=== PATIENT | male | born 1970 | race Caucasian/White ===

== ENCOUNTER 2017-04-22 14:06 | Emergency (ER) | payer OTHER ==
[2017-04-22 14:37] VITALS: BP 128/86
[2017-04-22] MEDS ORDERED: Tetan/Diph/Pertus SYR(Tdap)* 0.5 ML SYR(BOOSTRIX) use SYR IM ONE (15:18)
--- NOTE | 2017-04-22 15:19 | UC ---
Skin Complaint HPI - HPI Summary HPI Summary: Pt presents with 3 days pruritic red rash on right medial calf. Pt states started [place]. Pt states was sweaty and hot. states had little "bumps" he itched. States made small scabs. No other complaints - no fevers, chills. No cp, sob, abd pain non n/v. States wounds were above top of work boots, but was wearing jeans. Not immunocompromised. Unknown last tetanus. Pt's medications reviewed at this visit - History of Current Complaint Chief Complaint: UCRash Time Seen by Provider: 04/22/17 15:00 Stated Complaint: RIGHT CALF SKIN COMPLAINT Hx Obtained From: Patient Onset/Duration: Sudden Onset, Lasting Days Skin Exposure Onset/Duration: Days Ago Timing: Constant Onset Severity: Mild Current Severity: Mild Pain Intensity: 0 Location: Discrete Aggravating: Nothing Alleviating: Nothing Associated Signs & Symptoms: Positive: Rash - Allergy/Home Medications Allergies/Adverse Reactions: Allergies Allergy/AdvReac Type Severity Reaction Status Date / Time bees Allergy Swelling Uncoded 04/22/17 14:39 Of Face,Lips,& Throat seasonal Allergy Eyes Uncoded 04/22/17 14:39 Itchy/Swollen/Red/Watery Home Medications: Home Medications Bag [place] 1 applic TOPICAL ONCE PRN 04/22/17 [History] Hydrocortisone 1% CREAM* [Hytone Cream 1%*] 1 applic TOPICAL ONCE PRN 04/22/17 [ History Confirmed 04/22/17] Restless Leg Med 1 tab PO BEDTIME PRN 04/22/17 [History] Review of Systems Constitutional: Negative Skin: Rash Eyes: Negative ENT: Negative Respiratory: Negative Cardiovascular: Negative Gastrointestinal: Negative Genitourinary: Negative Motor: Negative Neurovascular: Negative Musculoskeletal: Negative Neurological: Negative Psychological: Negative All Other Systems Reviewed And Are Negative: Yes PMH/Surg Hx/FS Hx/Imm Hx Previously Healthy: Yes - Surgical History Surgical History: Yes Surgery Procedure, Year, and Place: partial thyroidectomy - Family History Known Family History: Positive: Unknown - Social History Occupation: Employed Full-time Lives: With Family Alcohol Use: None Substance Use Type: None Smoking Status (MU): Heavy Every Day Tobacco Smoker Physical Exam Triage Information Reviewed: Yes Appearance: Well-Appearing, No Pain Distress, Well-Nourished Vital Signs: Initial Vital Signs Temp 99.2 F 04/22/17 14:27 Pulse 84 04/22/17 14:27 Resp 18 04/22/17 14:27 BP 128/86 04/22/17 14:27 Vital Signs Reviewed: Yes Eye Exam: Normal Eyes: Positive: Conjunctiva Clear ENT Exam: Normal ENT: Positive: Normal ENT inspection, Hearing grossly normal, Pharynx normal, TMs normal Dental Exam: Normal Neck exam: Normal Neck: Positive: Supple, Nontender Respiratory Exam: Normal Respiratory: Positive: Chest non-tender, Lungs clear, Normal breath sounds, No respiratory distress, No accessory muscle use, Respiratory distress Cardiovascular Exam: Normal Cardiovascular: Positive: RRR, No Murmur, Pulses Normal Abdominal Exam: Normal Abdomen Description: Positive: Nontender, No Organomegaly, Soft Bowel Sounds: Positive: Present Musculoskeletal Exam: Normal Musculoskeletal: Positive: Strength Intact Neurological Exam: Normal Neurological: Positive: Alert Psychological Exam: Normal Skin: Positive: rashes - Right LE medial aspect of calf - Pt with discrete raised, red lesions on erythematous base with some confluence of base. small scab on lesion no warmth No streaking no fluctuance Course/Dx - Course Course Of Treatment: Pt with red raised rash, pruruitic on right medial calf. nontender. occurred after outdoor work. suspect contact dermatitis. Will give Medrol dose pack. avoid heat. OTC benadryl. elevate. tdap. s/s infection and return precautions discussed - Diagnoses Provider Diagnoses: contact dermatitis Discharge - Discharge Plan Condition: Stable Disposition: HOME Prescriptions: Methylprednisolone [Medrol Dosepak 4 MG*] 4 mg PO .SEE SUDHIR INSTRUCTION #1 tab Patient Education Materials: Diphtheria/Tetanus Vaccine (By injection), Contact Dermatitis (ED) Referrals: MOI Welsh [Primary Care Provider] - Additional Instructions: - Stay well hydrated. Drink plenty of non-alcoholc, non-caffinated beverages - Take prednisone exactly as prescribed until gone - Monitor your wound for signs of infection - red streaking, increased redness, odor, fever, chills, pain - Your arm will likely be sore where you received your tetanus vaccine today - this is normal - Okay to alternate ibuprofen (Advil, Motrin) and tylenol every 3 hours for pain -Avoid getting over heated- hot showers, hot tub, execises for a few days - this will make itching worse -Okay to apply over the counter bendaryl cream or hydrocortisone as needed for itching - Call your doctor or return with questions or concerns
== END 2017-04-22 15:32 | disposition home or self-care (01) ==
LOC: UCCORT 14:06
DX: L25.5 Unspecified contact dermatitis due to plants, except food (principal); Z23 Encounter for immunization; F17.210 Nicotine dependence, cigarettes, uncomplicated
CPT/HCPCS: 90471; 90715; 99212; G0463

== ENCOUNTER 2017-05-01 16:51 | Emergency (ER) | payer OTHER ==
--- NOTE | 2017-05-01 17:40 | UC ---
Skin Complaint HPI - HPI Summary HPI Summary: SEEN ON 04/22/17 DIAGNOSED WITH CONTACT DERMATITIS, GIVEN SOLUMEDROL DOSEPACK; CONCERN IMPROVED BUT RASH WAS VERY ITCHY. HOWEVER OVER LAST FOUR DAYS AREA HAS BECOME RED WARM SWOLLEN AND ITCHY RASH CONTINUES. NO CHEST PAIN. NO SHORTNESS OF BREATH. - History of Current Complaint Chief Complaint: UCLowerExtremity Time Seen by Provider: 05/01/17 16:57 Stated Complaint: RASH/SWELLING CALF RIGHT LEG Hx Obtained From: Patient Onset/Duration: Gradual Onset, Lasting Weeks, Still Present Skin Exposure Onset/Duration: Weeks Ago Onset Severity: Mild Current Severity: Moderate Location: Discrete - RIGHT MEDIAL CALF Character: Pruritus, Redness, Raised, Painful - TENDER Aggravating: Nothing Alleviating: Nothing Associated Signs & Symptoms: Positive: Rash. Negative: Fever, Chills, Hoarseness, Throat Tightening, Syncope, Drainage, Bruising, Tenderness - Allergy/Home Medications Allergies/Adverse Reactions: Allergies Allergy/AdvReac Type Severity Reaction Status Date / Time bees Allergy Swelling Uncoded 05/01/17 17:09 Of Face,Lips,& Throat seasonal Allergy Eyes Uncoded 05/01/17 17:09 Itchy/Swollen/Red/Watery Home Medications: Home Medications Diphenhydramine HCl [Benadryl Allergy 25 MG CAP] 25 mg PO Q6H PRN 05/01/17 [ History Confirmed 05/01/17] Poison Jessica Cream 1 udc TOPICAL DAILY PRN 05/01/17 [History Confirmed 05/01/17] Review of Systems Constitutional: Negative Skin: Rash Eyes: Negative ENT: Negative Respiratory: Negative Cardiovascular: Negative Gastrointestinal: Negative Genitourinary: Negative Motor: Negative Neurovascular: Negative Musculoskeletal: Negative, Calf Tenderness - MEDIAL RIGHT CALF AT AREA OF ERYTHEMA Neurological: Negative Psychological: Negative All Other Systems Reviewed And Are Negative: Yes PMH/Surg Hx/FS Hx/Imm Hx Previously Healthy: Yes - Surgical History Surgical History: Yes Surgery Procedure, Year, and Place: partial thyroidectomy - Family History Known Family History: Positive: Unknown - Social History Occupation: Employed Full-time Lives: With Family Alcohol Use: None Substance Use Type: None Smoking Status (MU): Heavy Every Day Tobacco Smoker Type: Cigarettes Amount Used/How Often: 1 PPD Length of Time of Smoking/Using Tobacco: 18 Have You Smoked in the Last Year: Yes Cessation Counseling: Patient Advised to Stop Physical Exam Triage Information Reviewed: Yes Appearance: Well-Appearing, No Pain Distress, Well-Nourished Vital Signs: Initial Vital Signs Temp 98.6 F 05/01/17 16:55 Pulse 95 05/01/17 16:55 Resp 20 05/01/17 16:55 BP 142/104 05/01/17 16:55 Pulse Ox 97 05/01/17 16:55 Vital Signs Reviewed: Yes Eye Exam: Normal ENT Exam: Normal Dental Exam: Normal Neck exam: Normal Neck: Positive: Supple, Nontender, No Lymphadenopathy Respiratory Exam: Normal Respiratory: Positive: Chest non-tender, Lungs clear Cardiovascular Exam: Normal Cardiovascular: Positive: RRR, No Murmur, Pulses Normal Abdominal Exam: Normal Musculoskeletal Exam: Normal Musculoskeletal: Positive: Strength Intact, ROM Intact, No Edema Neurological Exam: Normal Psychological Exam: Normal Skin: Positive: rashes - ERYTHEMA RIGHT MEDIAL CALF Course/Dx - Differential Diagnoses - Skin Complaint Differential Diagnoses: Cellulitis, Eczema, Local Allergic Reaction, MRSA, Poison Jessica, Poison [place], Tick Born Illness, Tinea - Diagnoses Provider Diagnoses: CONTACT DERMATITIS CELLULITIS RIGHT MEDIAL CALF Discharge - Discharge Plan Condition: Stable Disposition: HOME Prescriptions: Cephalexin CAP* [Keflex CAP*] 500 mg PO TID #30 cap Triamcinolone 0.5% OINT * 1 applic TOPICAL TID #1 tube Patient Education Materials: Contact Dermatitis (ED), Cellulitis (ED) Referrals: MOI Welsh [Primary Care Provider] - Images Front/Back of Body, Lg ([place]): 1 - EXCORIATED ERYTHEMATOUS WARM AREA 4CM X 3CM; NEGATIVE HHOMANS; TENDER IN AREA OF ERYTHEMA
[2017-05-01 17:46] VITALS: BP 142/102
== END 2017-05-01 17:40 | disposition home or self-care (01) ==
LOC: UCCORT 16:51
DX: L25.9 Unspecified contact dermatitis, unspecified cause (principal); L03.115 Cellulitis of right lower limb; E89.0 Postprocedural hypothyroidism; Z91.030 Bee allergy status; F17.210 Nicotine dependence, cigarettes, uncomplicated
CPT/HCPCS: 99212; G0463

== ENCOUNTER 2017-06-04 16:51 | Emergency (ER) | payer OTHER ==
[2017-06-04 19:11] VITALS: BP 147/104
--- NOTE | 2017-06-04 19:20 | ED ---
Skin Complaint - HPI Summary HPI Summary: itchy red rash on back of right calf---did get stung by a bee yesterday--but that does not seem related--unsure of exposure no place elese on his body - History of Current Complaint Chief Complaint: UCRash Time Seen by Provider: 06/04/17 19:13 Stated Complaint: RIGHT LEG ISSUE Hx Obtained From: Patient Onset/Duration: Started Hours Ago, Atraumatic, Still Present Timing: Constant Onset Severity: Mild Current Severity: Mild Skin Location: Discrete - back of right calf Character: Pruritus, Hives Aggravating Symptom(s): Nothing Alleviating Symptom(s): Nothing Associated Signs & Symptoms: Negative Related History: Possible Reaction to: Insect - Allergy/Home Medications Allergies/Adverse Reactions: Allergies Allergy/AdvReac Type Severity Reaction Status Date / Time bees Allergy Swelling Uncoded 06/04/17 17:13 Of Face,Lips,& Throat seasonal Allergy Eyes Uncoded 06/04/17 17:13 Itchy/Swollen/Red/Watery PMH/Surg Hx/FS Hx/Imm Hx Previously Healthy: No Endocrine/Hematology History: Reports: Hx Thyroid Disease - benign Neurological History: Reports: Hx Seizures - Cancer History Hx Hematologic Symptoms: No Hx Chemotherapy: No Hx Radiation Therapy: No Hx Palliative Cancer Treatment: No - Surgical History Surgery Procedure, Year, and Place: partial thyroidectomy Hx Anesthesia Reactions: No - Immunization History Hx Pertussis Vaccination: No Immunizations Up to Date: No Infectious Disease History: No Infectious Disease History: Denies: Traveled Outside the [place] in Last 30 Days - Family History Known Family History: Positive: Unknown - Social History Occupation: Unemployed Lives: With Family Alcohol Use: None Substance Use Type: Reports: None Smoking Status (MU): Heavy Every Day Tobacco Smoker Type: Cigarettes Amount Used/How Often: 1 PPD Length of Time of Smoking/Using Tobacco: 18 Have You Smoked in the Last Year: Yes Review of Systems Constitutional: Negative Eyes: Negative ENT: Negative Cardiovascular: Negative Respiratory: Negative Gastrointestinal: Negative Genitourinary: Negative Musculoskeletal: Negative Positive: Rash Neurological: Negative Psychological: Normal All Other Systems Reviewed And Are Negative: Yes Physical Exam Triage Information Reviewed: Yes Vital Signs On Initial Exam: Initial Vitals Temp Pulse Resp BP Pulse Ox 98.9 F 81 16 133/98 99 06/04/17 17:14 06/04/17 17:14 06/04/17 17:14 06/04/17 17:14 06/04/17 17:14 Vital Signs Reviewed: Yes Appearance: Positive: Well-Appearing, No Pain Distress Skin: Positive: Warm, Skin Color Reflects Adequate Perfusion, Other - urticaria back of right calf Eyes: Positive: Normal, EOMI, SANAZ ENT: Positive: Normal ENT inspection, Hearing grossly normal. Negative: Nasal congestion, Nasal drainage, Muffled/hoarse voice, Dental tenderness Neck: Positive: Supple, Nontender Respiratory/Lung Sounds: Positive: Breath Sounds Present. Negative: Unable to speak in full sentences Cardiovascular: Positive: Normal, RRR Musculoskeletal: Positive: Normal, Strength/ROM Intact Neurological: Positive: Normal, Sensory/Motor Intact, Alert, Oriented to Person Place, Time Psychiatric: Positive: Normal AVPU Assessment: Alert - [place] Coma Scale Best Eye Response: 4 - Spontaneous Best Motor Response: 6 - Obeys Commands Best Verbal Response: 5 - Oriented Diagnostics - Vital Signs Vital Signs Temp Pulse Resp BP Pulse Ox 06/04/17 19:09 99.2 F 70 16 147/104 99 06/04/17 17:14 98.9 F 81 16 133/98 99 - Laboratory Lab Statement: Any lab studies that have been ordered have been reviewed, and results considered in the medical decision making process. Course/Dx - Course Course Of Treatment: pepcid, benadryl, steroid cream (refused po med) follow with pcp - Differential Diagnoses - Skin Complaint Differential Diagnoses: Contact Dermatitis, Local Allergic Reaction, Poison Jessica , Poison [place] - Diagnoses Provider Diagnoses: Acute contact dermatitis Discharge - Discharge Plan Condition: Stable Disposition: HOME Prescriptions: Famotidine TAB 40 MG(NF) [Pepcid TAB 40 MG(NF)] 40 mg PO DAILY #7 tab Triamcinolone 0.5% CREAM(NF) [Triamcinolone 0.5% CREAM*] 1 applic TOPICAL TID # 1 tube Patient Education Materials: Famotidine (By mouth), Contact Dermatitis (ED), Diphenhydramine (By mouth) Referrals: Etienne Dia [Primary Care Provider] - 5 Days
== END 2017-06-04 19:40 | disposition home or self-care (01) ==
LOC: UCCORT 16:51
DX: L25.9 Unspecified contact dermatitis, unspecified cause (principal); E07.9 Disorder of thyroid, unspecified; R56.9 Unspecified convulsions; E89.0 Postprocedural hypothyroidism; F17.210 Nicotine dependence, cigarettes, uncomplicated
CPT/HCPCS: 99212; G0463

== ENCOUNTER 2017-06-22 15:45 | Emergency (ER) | payer OTHER ==
[2017-06-22 16:46] VITALS: BP 134/93
--- NOTE | 2017-06-22 17:03 | UC ---
Ear Complaint HPI - HPI Summary HPI Summary: right ear feels muffled after have right sided dental work earlier this week - History of Current Complaint Chief Complaint: UCEar Stated Complaint: PLUGGED EAR Time Seen by Provider: 06/22/17 17:00 Hx Obtained From: Patient Onset/Duration: Sudden Onset, Lasting Days - after getting dental work down Severity Initially: Mild Severity Currently: Moderate Pain Intensity: 2 Pain Scale Used: 0-10 Numeric Aggravating Factors: Nothing Alleviating Factors: Nothing Associated Signs/Symptoms: Positive: Hearing Loss - ear feels under water - Allergies/Home Medications Allergies/Adverse Reactions: Allergies Allergy/AdvReac Type Severity Reaction Status Date / Time bees Allergy Swelling Uncoded 06/22/17 16:46 Of Face,Lips,& Throat seasonal Allergy Eyes Uncoded 06/22/17 16:46 Itchy/Swollen/Red/Watery PMH/Surg Hx/FS Hx/Imm Hx Psychological History: Bipolar Disorder - Surgical History Surgical History: Yes Surgery Procedure, Year, and Place: partial thyroidectomy - Family History Known Family History: Positive: Unknown - Social History Occupation: Unemployed Lives: With Family Alcohol Use: None Substance Use Type: None Smoking Status (MU): Heavy Every Day Tobacco Smoker Type: Cigarettes Amount Used/How Often: 1 PPD Length of Time of Smoking/Using Tobacco: 18 Have You Smoked in the Last Year: Yes Household Exposure Type: Cigarettes Cessation Counseling: Patient Advised to Stop Review of Systems Constitutional: Negative Skin: Negative Eyes: Negative ENT: Negative, Ear Ache - right ear feels muffled Respiratory: Negative Cardiovascular: Negative Gastrointestinal: Negative Genitourinary: Negative Motor: Negative Neurovascular: Negative Musculoskeletal: Negative Neurological: Negative Psychological: Negative Is Patient Immunocompromised?: No All Other Systems Reviewed And Are Negative: Yes Physical Exam Triage Information Reviewed: Yes Appearance: Well-Appearing, No Pain Distress, Well-Nourished Vital Signs: Initial Vital Signs Temp 99.5 F 06/22/17 16:42 Pulse 83 06/22/17 16:42 Resp 16 06/22/17 16:42 BP 134/93 06/22/17 16:42 Pulse Ox 99 06/22/17 16:42 Vital Signs Reviewed: Yes Eye Exam: Normal Eyes: Positive: Conjunctiva Clear ENT Exam: Normal ENT: Positive: Normal ENT inspection, Hearing grossly normal, Pharynx normal, TMs normal, Other: - some cerumen in ear. Negative: Nasal congestion, Nasal drainage, Tonsillar swelling, Tonsillar exudate, Trismus, Muffled/hoarse voice Dental Exam: Normal Dental: Positive: Other: - healing extraction right lower jaw Neck exam: Normal Neck: Positive: Supple, Nontender Respiratory Exam: Normal Respiratory: Positive: Chest non-tender, No respiratory distress, No accessory muscle use Cardiovascular Exam: Normal Cardiovascular: Positive: RRR, Pulses Normal, Brisk Capillary Refill Musculoskeletal Exam: Normal Musculoskeletal: Positive: Strength Intact, ROM Intact Neurological Exam: Normal Neurological: Positive: Alert, Muscle Tone Normal Psychological Exam: Normal Re-Evaluation - Re-Evaluation Second Eval Change: Unchanged - no much relief of "under water feeling" Ear Complaint Course/Dx - Course Course Of Treatment: continue meds as rx, follow bp with pcp on as planned - Differential Dx/Diagnosis Provider Diagnoses: right eustation tube dysfunction Discharge - Discharge Plan Condition: Stable Disposition: HOME Patient Education Materials: Hypertension (ED), Serous Otitis Media (ED) Referrals: Abelardo THOMAS,Etienne Silverio [Primary Care Provider] - 06/25/17 Additional Instructions: Your Blood Pressure today is 134/93
== END 2017-06-22 17:26 | disposition home or self-care (01) ==
LOC: UCCORT 15:45
DX: H65.92 Unspecified nonsuppurative otitis media, left ear (principal); I10 Essential (primary) hypertension; F17.210 Nicotine dependence, cigarettes, uncomplicated
CPT/HCPCS: 99212; G0463